=== PATIENT | female | born 1950 | race Asian ===

== ENCOUNTER 2022-09-06 12:22 | Inpatient (IN) | payer MEDICARE, OTHER ==
[~2022-09-06] VITALS: Ht 157.5 cm; Wt 57.6 kg
[~2022-09-06 12:22] MED LIST: METF-1211 PO; SIMV-260 PO; [UNRECOGNIZED DRUG - REMARK] PO
[2022-09-06 13:30] VITALS: BP 149/76; PULSE 85; RESP 19; TEMP 98.3; O2SAT 99
[2022-09-06] MEDS ORDERED: ACETAMINOPHEN 325 MG TABLET PO PRN (13:45)
[2022-09-06] MEDS ORDERED: ALBUTEROL SULFATE HFA 90 MCG/PUFF 8 GM INHALER IH PRN (14:15)
[2022-09-06] MEDS ORDERED: *PATIENT'S OWN MED [ENTER DRUG, DOSE, FREQUENCY IN COMMENTS] CLINICAL ONE (14:30)
[2022-09-06 15:17] VITALS: O2SAT 99
[2022-09-06 17:33] LABS: GLUCOMETER DEV NAME(LOC) 2WR.1D
[2022-09-06] MEDS: MetFORMIN HCL 500 MG TABLET PO SCH (17:59)
[2022-09-06 20:01] VITALS: BP 144/75; PULSE 89; RESP 19; TEMP 98.1; O2SAT 97
[2022-09-06] MEDS: CALCIUM [CALCIUM CARB 1250MG] 500 MG TABLET PO SCH (20:22)
[2022-09-06] MEDS: LevETIRAcetam 250 MG TABLET PO SCH (20:22)
[2022-09-06] MEDS: MAGNESIUM OXIDE 400 MG TABLET PO SCH (20:22)
[2022-09-06] MEDS: DOXEPIN HCL 25 MG CAPSULE PO SCH (20:22)
[2022-09-06] MEDS: CLOBETASOL 0.05% 60 GM CREAM TP SCH (20:23)
[2022-09-06] MEDS: MIRTAZAPINE 15 MG TABLET PO SCH (20:23)
[2022-09-06] MEDS ORDERED: CELECOXIB 200 MG CAPSULE PO SCH (21:00)
[2022-09-06] MEDS ORDERED: CLOBETASOL 0.05% 15 GM CREAM TP SCH (21:00)
[2022-09-06] MEDS ORDERED: DICLOFENAC SODIUM 1% 100 GM GEL [4GM] TP SCH (21:00)
[2022-09-06] MEDS ORDERED: TRIAMCINOLONE 0.5% 15 GM CREAM TP SCH (21:00)
[2022-09-06 21:18] VITALS: O2SAT 97
[2022-09-06] MEDS: MELATONIN 3 MG TABLET PO PRN (21:58)
[2022-09-06 22:08] LABS: GLUCOMETER DEV NAME(LOC) 2WR.1D
[2022-09-06] MEDS: CEPHALEXIN MONOHYDRATE 500 MG CAPSULE PO SCH (22:24)
[2022-09-07 07:02] LABS: BASOPHILS % (AUTO) 0.8 % (0.0-2.0); EOSINOPHILS % (AUTO) 0.9 % (1.0-6.0); HEMATOCRIT 36.4 % (36-46); LYMPHOCYTES # (AUTO) 1.2 K/uL (1.0-4.8); MEAN CORPUSCULAR HEMOGLOBIN 31.1 pg (26.0-34.0); MEAN CORPUSCULAR HGB CONC 32.8 G/dL (31.0-37.0); MEAN CORPUSCULAR VOLUME 95 fL (80-100); MONOCYTES % (AUTO) 10.8 % (2.0-9.0); NEUTROPHILS # (AUTO) 6.8 K/uL (1.8-7.7); NEUTROPHILS % (AUTO) 74.5 % (40.0-70.0); PLATELET COUNT (AUTO) 460 K/uL (150-450); RED BLOOD CELL COUNT(AUTO) 3.85 MIL/uL (4.00-5.20); RED CELL DISTRIBUTION WIDTH 15.2 % (11.5-14.5)
[2022-09-07 07:13] LABS: ALANINE AMINOTRANSFERASE 15 U/L (12-78); ALBUMIN 3.5 g/dL (3.4-5.0); ALKALINE PHOSPHATASE 54 U/L (46-116); ANION GAP 5 mmol/L (8-16); ASPARTATE AMINOTRANSFERASE 16 U/L (15-37); BILIRUBIN,TOTAL 0.3 mg/dL (0.1-1.0); CALCIUM, TOTAL 9.7 mg/dL (8.8-10.5); CARBON DIOXIDE 28 mmol/L (22-29); CHLORIDE 98 mmol/L (98-107); CREATININE 0.86 mg/dL (0.60-1.30); GLOMERULAR FILTR. RATE CALC > 60 mL/min (>60); GLUCOSE,RANDOM 88 mg/dL (70-110); POTASSIUM 3.6 mmol/L (3.5-5.1); SODIUM SERUM 131 mmol/L (136-145); TOTAL PROTEIN, SERUM 7.1 g/dL (6.4-8.2)
[2022-09-07 07:58] LABS: GLUCOMETER DEV NAME(LOC) 2WR.1D
[2022-09-07 08:22] VITALS: BP 136/65; PULSE 67; RESP 18; TEMP 98.2; O2SAT 99
[2022-09-07] MEDS: ATORVASTATIN CALCIUM 10 MG TABLET PO SCH (08:48)
[2022-09-07] MEDS: POTASSIUM CHLORIDE 20 MEQ ER TABLET PO SCH (08:48)
[2022-09-07] MEDS: CHOLECALCIFEROL (VIT D3) 1,000 UNITS [25 MCG] TABLET PO SCH (08:48)
[2022-09-07] MEDS: LORazepam 0.5 MG TABLET PO SCH (08:48)
[2022-09-07] MEDS: MAGNESIUM OXIDE 400 MG TABLET PO SCH ×2 (08:48→21:06)
[2022-09-07] MEDS: MetFORMIN HCL 500 MG TABLET PO SCH ×2 (08:48→17:48)
[2022-09-07] MEDS: CALCIPOTRIENE 0.005% 60 GM CREAM TP SCH (08:49)
[2022-09-07] MEDS: DICLOFENAC SODIUM 1% 100 GM GEL [4GM] TP SCH (08:50)
[2022-09-07] MEDS: TRIAMCINOLONE 0.5% 15 GM CREAM TP SCH (08:50)
[2022-09-07] MEDS: CALCIUM [CALCIUM CARB 1250MG] 500 MG TABLET PO SCH ×2 (08:52→21:06)
[2022-09-07] MEDS: LevETIRAcetam 250 MG TABLET PO SCH ×2 (08:52→21:07)
[2022-09-07] MEDS: CEPHALEXIN MONOHYDRATE 500 MG CAPSULE PO SCH ×2 (08:52→21:06)
[2022-09-07] MEDS: VITAMIN B COMPLEX/FOLIC ACID 1 TABLET PO SCH (08:53)
[2022-09-07] MEDS: NIFEdipine 30 MG ER TABLET PO SCH (08:53)
[2022-09-07] MEDS: OMEPRAZOLE 20 MG CAPSULE PO SCH (08:54)
[2022-09-07] MEDS: ESCITALOPRAM OXALATE 20 MG TABLET PO SCH (08:54)
[2022-09-07] MEDS: LOSARTAN POTASSIUM 50 MG TABLET PO SCH (08:58)
[2022-09-07] MEDS: TOLTERODINE TARTRATE 2 MG TABLET PO SCH ×2 (09:05→21:09)
[2022-09-07 12:43] LABS: GLUCOMETER DEV NAME(LOC) 2WR.1D
[2022-09-07 18:01] LABS: GLUCOMETER DEV NAME(LOC) 2WR.1D
[2022-09-07 20:26] VITALS: BP 115/64; PULSE 85; RESP 19; TEMP 97.8; O2SAT 98
[2022-09-07] MEDS: CLOBETASOL 0.05% 60 GM CREAM TP SCH (21:00)
[2022-09-07] MEDS: MELATONIN 3 MG TABLET PO PRN (21:07)
[2022-09-07] MEDS: DOXEPIN HCL 25 MG CAPSULE PO SCH (21:08)
[2022-09-07] MEDS: MIRTAZAPINE 15 MG TABLET PO SCH (21:08)
[2022-09-07 21:14] VITALS: O2SAT 98
[2022-09-07 21:21] LABS: GLUCOMETER DEV NAME(LOC) 2WR.1D
[2022-09-08] MEDS ORDERED: ALENDRONATE SODIUM 70 MG TABLET PO SCH (06:30)
[2022-09-08 06:41] LABS: GLUCOMETER DEV NAME(LOC) 2WR.1D
[2022-09-08 07:45] VITALS: BP 129/67; PULSE 96; RESP 19; TEMP 98; O2SAT 97
[2022-09-08] MEDS: ATORVASTATIN CALCIUM 10 MG TABLET PO SCH (07:46)
[2022-09-08] MEDS: POTASSIUM CHLORIDE 20 MEQ ER TABLET PO SCH (07:46)
[2022-09-08] MEDS: CHOLECALCIFEROL (VIT D3) 1,000 UNITS [25 MCG] TABLET PO SCH (07:46)
[2022-09-08] MEDS: MAGNESIUM OXIDE 400 MG TABLET PO SCH ×2 (07:47→20:52)
[2022-09-08] MEDS: ETHYL ALCOHOL 62% ANTISEPTIC NASAL SANITIZER 0.6 ML AMPUL NASAL SCH ×2 (07:47→20:50)
[2022-09-08] MEDS: LORazepam 0.5 MG TABLET PO SCH (07:47)
[2022-09-08] MEDS: MetFORMIN HCL 500 MG TABLET PO SCH ×2 (07:47→17:03)
[2022-09-08] MEDS: DICLOFENAC SODIUM 1% 100 GM GEL [4GM] TP SCH (07:47)
[2022-09-08] MEDS: CALCIPOTRIENE 0.005% 60 GM CREAM TP SCH (07:47)
[2022-09-08] MEDS: TRIAMCINOLONE 0.5% 15 GM CREAM TP SCH (07:47)
[2022-09-08] MEDS: TOLTERODINE TARTRATE 2 MG TABLET PO SCH ×2 (07:48→20:51)
[2022-09-08] MEDS: LevETIRAcetam 250 MG TABLET PO SCH ×2 (07:48→20:52)
[2022-09-08] MEDS: CALCIUM [CALCIUM CARB 1250MG] 500 MG TABLET PO SCH ×2 (07:48→20:51)
[2022-09-08] MEDS: CELECOXIB 200 MG CAPSULE PO SCH (07:49)
[2022-09-08] MEDS: OMEPRAZOLE 20 MG CAPSULE PO SCH (07:49)
[2022-09-08] MEDS: CEPHALEXIN MONOHYDRATE 500 MG CAPSULE PO SCH ×2 (07:49→20:51)
[2022-09-08] MEDS: ESCITALOPRAM OXALATE 20 MG TABLET PO SCH (07:49)
[2022-09-08] MEDS: VITAMIN B COMPLEX/FOLIC ACID 1 TABLET PO SCH (07:49)
[2022-09-08] MEDS: NIFEdipine 30 MG ER TABLET PO SCH (07:51)
[2022-09-08] MEDS: LOSARTAN POTASSIUM 50 MG TABLET PO SCH (07:58)
[2022-09-08 13:12] VITALS: O2SAT 97
[2022-09-08 16:15] LABS: GLUCOMETER DEV NAME(LOC) 2WR.1D
[2022-09-08] MEDS: MIRTAZAPINE 15 MG TABLET PO SCH (20:52)
[2022-09-08] MEDS: DOXEPIN HCL 25 MG CAPSULE PO SCH (20:52)
[2022-09-08] MEDS: CLOBETASOL 0.05% 60 GM CREAM TP SCH (20:52)
[2022-09-08] MEDS: APREMILAST 30 MG PO SCH (20:55)
[2022-09-08 23:00] VITALS: BP 107/58; PULSE 81; RESP 16; TEMP 97.5; O2SAT 96
[2022-09-08 23:17] VITALS: O2SAT 96
[2022-09-09] MEDS: MELATONIN 3 MG TABLET PO PRN (00:40)
[2022-09-09 07:16] LABS: GLUCOMETER DEV NAME(LOC) 2WR.2B
[2022-09-09] MEDS: VITAMIN B COMPLEX/FOLIC ACID 1 TABLET PO SCH (08:47)
[2022-09-09] MEDS: APREMILAST 30 MG PO SCH ×2 (08:47→20:53)
[2022-09-09] MEDS: OMEPRAZOLE 20 MG CAPSULE PO SCH (08:47)
[2022-09-09] MEDS: ETHYL ALCOHOL 62% ANTISEPTIC NASAL SANITIZER 0.6 ML AMPUL NASAL SCH ×2 (08:47→20:54)
[2022-09-09] MEDS: CEPHALEXIN MONOHYDRATE 500 MG CAPSULE PO SCH ×2 (08:47→20:54)
[2022-09-09] MEDS: ESCITALOPRAM OXALATE 20 MG TABLET PO SCH (08:47)
[2022-09-09] MEDS: CALCIUM [CALCIUM CARB 1250MG] 500 MG TABLET PO SCH ×2 (08:47→20:53)
[2022-09-09] MEDS: NIFEdipine 30 MG ER TABLET PO SCH (08:47)
[2022-09-09] MEDS: POTASSIUM CHLORIDE 20 MEQ ER TABLET PO SCH (08:48)
[2022-09-09] MEDS: LOSARTAN POTASSIUM 50 MG TABLET PO SCH (08:48)
[2022-09-09] MEDS: MetFORMIN HCL 500 MG TABLET PO SCH ×2 (08:48→16:55)
[2022-09-09] MEDS: CHOLECALCIFEROL (VIT D3) 1,000 UNITS [25 MCG] TABLET PO SCH (08:48)
[2022-09-09] MEDS: MAGNESIUM OXIDE 400 MG TABLET PO SCH ×2 (08:48→20:54)
[2022-09-09] MEDS: ATORVASTATIN CALCIUM 10 MG TABLET PO SCH (08:48)
[2022-09-09] MEDS: LevETIRAcetam 250 MG TABLET PO SCH ×2 (08:49→20:54)
[2022-09-09] MEDS: LORazepam 0.5 MG TABLET PO SCH (08:50)
[2022-09-09] MEDS: DICLOFENAC SODIUM 1% 100 GM GEL [4GM] TP SCH (08:51)
[2022-09-09] MEDS: CALCIPOTRIENE 0.005% 60 GM CREAM TP SCH (08:51)
[2022-09-09] MEDS: TRIAMCINOLONE 0.5% 15 GM CREAM TP SCH (08:52)
[2022-09-09] MEDS: TOLTERODINE TARTRATE 2 MG TABLET PO SCH ×2 (09:52→20:54)
[2022-09-09 10:05] VITALS: BP 128/64; PULSE 71; RESP 18; TEMP 98.2; O2SAT 98
[2022-09-09 12:02] VITALS: O2SAT 98
[2022-09-09 17:26] LABS: GLUCOMETER DEV NAME(LOC) 2WR.2B
[2022-09-09 20:01] VITALS: BP 122/55; PULSE 89; RESP 19; TEMP 97.2; O2SAT 98
[2022-09-09] MEDS: MIRTAZAPINE 15 MG TABLET PO SCH (20:52)
[2022-09-09] MEDS: CLOBETASOL 0.05% 60 GM CREAM TP SCH (21:00)
[2022-09-09 21:38] VITALS: O2SAT 98
[2022-09-09] MEDS: DOXEPIN HCL 25 MG CAPSULE PO SCH (21:41)
[2022-09-10 08:05] VITALS: BP 130/70; PULSE 70; RESP 18; TEMP 98.1; O2SAT 96
[2022-09-10] MEDS: MetFORMIN HCL 500 MG TABLET PO SCH ×2 (08:35→16:53)
[2022-09-10] MEDS: ETHYL ALCOHOL 62% ANTISEPTIC NASAL SANITIZER 0.6 ML AMPUL NASAL SCH ×2 (08:36→20:41)
[2022-09-10] MEDS: APREMILAST 30 MG PO SCH ×2 (08:36→20:41)
[2022-09-10] MEDS: VITAMIN B COMPLEX/FOLIC ACID 1 TABLET PO SCH (08:37)
[2022-09-10] MEDS: CELECOXIB 200 MG CAPSULE PO SCH (08:38)
[2022-09-10] MEDS: LOSARTAN POTASSIUM 50 MG TABLET PO SCH (08:38)
[2022-09-10] MEDS: LevETIRAcetam 250 MG TABLET PO SCH ×2 (08:40→20:42)
[2022-09-10] MEDS: ESCITALOPRAM OXALATE 20 MG TABLET PO SCH (08:40)
[2022-09-10] MEDS: POTASSIUM CHLORIDE 20 MEQ ER TABLET PO SCH (08:40)
[2022-09-10] MEDS: CEPHALEXIN MONOHYDRATE 500 MG CAPSULE PO SCH ×2 (08:40→20:42)
[2022-09-10] MEDS: ATORVASTATIN CALCIUM 10 MG TABLET PO SCH (08:41)
[2022-09-10] MEDS: CALCIUM [CALCIUM CARB 1250MG] 500 MG TABLET PO SCH ×2 (08:41→20:42)
[2022-09-10] MEDS: OMEPRAZOLE 20 MG CAPSULE PO SCH (08:41)
[2022-09-10] MEDS: MAGNESIUM OXIDE 400 MG TABLET PO SCH ×2 (08:41→20:42)
[2022-09-10] MEDS: NIFEdipine 30 MG ER TABLET PO SCH (08:42)
[2022-09-10] MEDS: CHOLECALCIFEROL (VIT D3) 1,000 UNITS [25 MCG] TABLET PO SCH (08:42)
[2022-09-10] MEDS: LORazepam 0.5 MG TABLET PO SCH (08:44)
[2022-09-10] MEDS: TOLTERODINE TARTRATE 2 MG TABLET PO SCH ×2 (08:45→20:41)
[2022-09-10] MEDS: TRIAMCINOLONE 0.5% 15 GM CREAM TP SCH (08:46)
[2022-09-10] MEDS: DICLOFENAC SODIUM 1% 100 GM GEL [4GM] TP SCH (08:46)
[2022-09-10] MEDS: CALCIPOTRIENE 0.005% 60 GM CREAM TP SCH (08:47)
[2022-09-10 12:02] VITALS: O2SAT 96
[2022-09-10 12:06] LABS: GLUCOMETER DEV NAME(LOC) 2WR.1D
[2022-09-10 17:51] LABS: GLUCOMETER DEV NAME(LOC) 2WR.1D
[2022-09-10 19:44] VITALS: BP 120/68; PULSE 99; RESP 18; TEMP 97.9; O2SAT 94
[2022-09-10 20:01] VITALS: BP 120/68; PULSE 99; RESP 18; TEMP 97.9; O2SAT 94
[2022-09-10] MEDS: MIRTAZAPINE 15 MG TABLET PO SCH (20:42)
[2022-09-10] MEDS: CLOBETASOL 0.05% 60 GM CREAM TP SCH (20:43)
[2022-09-10] MEDS ORDERED: CEPHALEXIN MONOHYDRATE 500 MG CAPSULE PO SCH (21:00)
[2022-09-10] MEDS: DOXEPIN HCL 25 MG CAPSULE PO SCH (21:10)
[2022-09-10 22:30] VITALS: O2SAT 94
[2022-09-11 06:46] LABS: GLUCOMETER DEV NAME(LOC) 2WR.2B
[2022-09-11] MEDS: ETHYL ALCOHOL 62% ANTISEPTIC NASAL SANITIZER 0.6 ML AMPUL NASAL SCH (08:32)
[2022-09-11] MEDS: APREMILAST 30 MG PO SCH (08:33)
[2022-09-11] MEDS: POTASSIUM CHLORIDE 20 MEQ ER TABLET PO SCH (08:48)
[2022-09-11] MEDS: LevETIRAcetam 250 MG TABLET PO SCH (08:48)
[2022-09-11] MEDS: NIFEdipine 30 MG ER TABLET PO SCH (08:48)
[2022-09-11] MEDS: CALCIUM [CALCIUM CARB 1250MG] 500 MG TABLET PO SCH (08:48)
[2022-09-11] MEDS: LORazepam 0.5 MG TABLET PO SCH (08:49)
[2022-09-11] MEDS: MAGNESIUM OXIDE 400 MG TABLET PO SCH (08:49)
[2022-09-11] MEDS: ESCITALOPRAM OXALATE 20 MG TABLET PO SCH (08:49)
[2022-09-11] MEDS: OMEPRAZOLE 20 MG CAPSULE PO SCH (08:51)
[2022-09-11] MEDS: MetFORMIN HCL 500 MG TABLET PO SCH (08:53)
[2022-09-11] MEDS: ATORVASTATIN CALCIUM 10 MG TABLET PO SCH (08:53)
[2022-09-11] MEDS: TRIAMCINOLONE 0.5% 15 GM CREAM TP SCH (08:55)
[2022-09-11] MEDS: CALCIPOTRIENE 0.005% 60 GM CREAM TP SCH (08:55)
[2022-09-11] MEDS: VITAMIN B COMPLEX/FOLIC ACID 1 TABLET PO SCH (08:57)
[2022-09-11] MEDS: TOLTERODINE TARTRATE 2 MG TABLET PO SCH (08:59)
[2022-09-11] MEDS: DICLOFENAC SODIUM 1% 100 GM GEL [4GM] TP SCH (09:00)
[2022-09-11] MEDS: LOSARTAN POTASSIUM 50 MG TABLET PO SCH (09:03)
[2022-09-11] MEDS: CHOLECALCIFEROL (VIT D3) 1,000 UNITS [25 MCG] TABLET PO SCH (09:04)
[2022-09-11 10:36] VITALS: BP 118/69; PULSE 82; RESP 18; TEMP 97.9; O2SAT 98
[2022-09-11 11:34] VITALS: O2SAT 98
[2022-09-13] MEDS ORDERED: ALENDRONATE SODIUM 70 MG TABLET PO SCH (06:30)
== END 2022-09-11 13:40 | disposition home or self-care (01) | DRG 556 ==
LOC: 2WR 13:00
PROVIDERS: ADMIT Physical Medicine & Rehabilitation; ATTEND Physical Medicine & Rehabilitation
DX: M62.81 Muscle weakness (generalized) (principal); G81.94 Hemiplegia, unspecified affecting left nondominant side; E87.1 Hypo-osmolality and hyponatremia; N39.0 Urinary tract infection, site not specified; S82.832A Other fracture of upper and lower end of left fibula, initial encounter for closed fracture; E11.9 Type 2 diabetes mellitus without complications; E55.9 Vitamin D deficiency, unspecified; E78.2 Mixed hyperlipidemia; F32.9 Major depressive disorder, single episode, unspecified; G31.84 Mild cognitive impairment of uncertain or unknown etiology; G47.00 Insomnia, unspecified; J45.909 Unspecified asthma, uncomplicated; K21.9 Gastro-esophageal reflux disease without esophagitis; L40.50 Arthropathic psoriasis, unspecified; R53.81 Other malaise; R49.0 Dysphonia; M81.0 Age-related osteoporosis without current pathological fracture; M19.90 Unspecified osteoarthritis, unspecified site; N32.81 Overactive bladder; R13.10 Dysphagia, unspecified; Z74.01 Bed confinement status; Z85.841 Personal history of malignant neoplasm of brain
CPT/HCPCS: 80053; 82962; 85025; 87081; 92507; 92523; 92526; 92610; 93970; 97110; 97112; 97163; 97167; 97530; 97535; 99366; Q9967

== ENCOUNTER 2022-10-03 18:17 | Emergency (ER) | payer MEDICARE, OTHER ==
[~2022-10-03] VITALS: Ht 157.5 cm; Wt 58.2 kg
[2022-10-03 22:08] LABS: BASOPHILS % (AUTO) 0.7 % (0.0-2.0); EOSINOPHILS % (AUTO) 0.6 % (1.0-6.0); HEMATOCRIT 39.9 % (36-46); HEMOGLOBIN 13.1 g/dL (12.0-16.0); LYMPHOCYTES # (AUTO) 1.3 K/uL (1.0-4.8); LYMPHOCYTES % (AUTO) 12.7 % (22.0-44.0); MEAN CORPUSCULAR HEMOGLOBIN 30.6 pg (26.0-34.0); MEAN CORPUSCULAR HGB CONC 32.7 G/dL (31.0-37.0); MEAN CORPUSCULAR VOLUME 94 fL (80-100); MONOCYTES # (AUTO) 0.9 K/uL (0.1-1.0); MONOCYTES % (AUTO) 8.7 % (2.0-9.0); NEUTROPHILS % (AUTO) 77.3 % (40.0-70.0); PLATELET COUNT (AUTO) 599 K/uL (150-450); RED BLOOD CELL COUNT(AUTO) 4.27 MIL/uL (4.00-5.20); RED CELL DISTRIBUTION WIDTH 14.9 % (11.5-14.5)
[2022-10-03 22:17] LABS: ANION GAP 10 mmol/L (8-16); CALCIUM, TOTAL 10.5 mg/dL (8.8-10.5); CARBON DIOXIDE 27 mmol/L (22-29); CHLORIDE 101 mmol/L (98-107); CREATININE 0.89 mg/dL (0.60-1.30); GLOMERULAR FILTR. RATE CALC > 60 mL/min (>60); GLUCOSE,RANDOM 132 mg/dL (70-110); POTASSIUM 3.7 mmol/L (3.5-5.1); SODIUM SERUM 138 mmol/L (136-145)
[2022-10-03 22:22] LABS: ALANINE AMINOTRANSFERASE 20 U/L (12-78); ALBUMIN 3.9 g/dL (3.4-5.0); ALKALINE PHOSPHATASE 79 U/L (46-116); ASPARTATE AMINOTRANSFERASE 21 U/L (15-37); BILIRUBIN,TOTAL 0.3 mg/dL (0.1-1.0); LIPASE 36 U/L (16-77)
[2022-10-03 22:25] LABS: LACTIC ACID 1.2 mmol/L (0.4-2.0)
[2022-10-03 22:28] LABS: B-TYPE NATRIURETIC PEPTIDE 58 pg/mL (0-100)
[2022-10-03 22:33] VITALS: TEMP 98.4
[2022-10-04 03:40] VITALS: BP 122/77; PULSE 99; RESP 16
[2022-10-04] MEDS ORDERED: MECL-134 PO (03:44)
== END 2022-10-04 04:27 | disposition home or self-care (01) ==
LOC: EMS 19:27
DX: R42 Dizziness and giddiness (principal); J45.909 Unspecified asthma, uncomplicated; E11.9 Type 2 diabetes mellitus without complications; E78.00 Pure hypercholesterolemia, unspecified; I10 Essential (primary) hypertension; Z85.841 Personal history of malignant neoplasm of brain
CPT/HCPCS: 70450; 80053; 83605; 83690; 83880; 84484; 85025; 93005; 99284